=== PATIENT | male | born 1990 | race Caucasian/White ===

== ENCOUNTER 2020-03-02 15:26 | Outpatient (REF) | payer OTHER, SELFPAY | END 2020-03-02 15:27 | disposition home or self-care (01) | LOC: HO.LAB 15:26 | PROVIDERS: Visit Provider Nurse Practitioner Family | DX: Z20.828 Contact with and (suspected) exposure to other viral communicable diseases (principal); R00.0 Tachycardia, unspecified | CPT/HCPCS: 87635 ==

== ENCOUNTER 2020-12-24 13:55 | Outpatient (REF) | payer OTHER, SELFPAY | END 2020-12-24 13:56 | disposition home or self-care (01) | LOC: HO.LNP 13:55 | PROVIDERS: Visit Provider Hospitalist | DX: Z20.822 Contact with and (suspected) exposure to COVID-19 (principal); B34.9 Viral infection, unspecified | CPT/HCPCS: U0003; U0005 ==

== ENCOUNTER 2023-04-23 09:37 | Outpatient (AMB) | payer OTHER, SELFPAY ==
--- NOTE | 2023-04-23 11:02 | AM.OFFWIN_ITS ---
Intake Vital Signs 04/23/23 11:16 Weight 151.046 kg BP 160/92 H Blood Pressure Location Rt brachial Position Sitting Pulse 74 Pulse Source Pulse Oximeter Temp 98.2 F Temp Source Oral Pulse Oximetry (%) 98 Oxygen Delivery Method Room Air Intake Visit Reasons: EST/cough/congestion([phone]) Intake Note: Patient is here today for cough congestion. Allergies penicillin G Allergy (Unknown, Verified 04/23/23 11:02) throat closes Do you need a note to return to daycare/school/sports/work: Yes HPI HPI Comments History of Present Illness Details 32-year-old male presents with fatigue, malaise, productive cough x3 weeks worsening. Reports children at home had a viral illness a while ago which has since resolved. Denies chest pain, shortness of breath, fevers, chills, nausea, vomiting, abdominal pain, headache, vision changes. Not a smoker Physical exam expiratory wheezing bilaterally Concerns for possible bronchitis versus pneumonia. Unlikely ACS, PE, acute respiratory distress. Other differentials include viral illness Plan doxycycline, prednisone, albuterol. Educated patient on diagnosis and treatment plan, answered all question, patient verbalizes understanding. At this time patient will be discharged home, advised to return with new or worsening symptoms. Educated on worrisome signs and symptoms and when to return. At this time I feel comfortable discharge home. [facility] Medical History Thyroid enlarged Family History Father Hypertension Mother Diabetes Review of Systems Const Details: Constitutional : No Weight loss, No Fever, No Chills, No Fatigue, No Malaise ENT/Mouth : No sore throat, No Rhinorrhea Eyes: No Eye Pain, No Swelling, No Redness Cardiovascular : No Chest Pain, No SOB, No Dyspnea on Exertion, No Orthopnea, No Edema, No Palpitations Respiratory : No Cough, No Sputum, No Wheezing Gastrointestinal : No Nausea, No Vomiting, No Diarrhea, No Constipation, No abdominal Pain, No Hematochezia, No Melena Genitourinary : No Dysuria, No Urinary Frequency, No Hematuria, Musculoskeletal : No joint pain, No Myalgias, No Joint Swelling Skin : No Skin Lesions, No rash Neuro : No Weakness, No Numbness, No Dizziness, No Headache Psych : No Anxiety/Panic, No Depression All other systems reviewed and are negative All systems reviewed & are unremarkable except as noted in HPI and below Physical Exam Vital Signs: Last Vital Signs Temp 98.2 F 04/23/23 11:16 Pulse 74 04/23/23 11:16 BP 160/92 H 04/23/23 11:16 Pulse Ox 98 04/23/23 11:16 Oxygen Delivery Method Room Air 04/23/23 11:16 vss Appearance: Alert.? Oriented X3.? No acute distress.? Head: Normocephalic, atraumatic, no step-offs or deformities Eyes: Pupils equal, round and reactive to light.? ENT: Pharynx normal.? Neck: Normal inspection.? Neck supple.? CVS: Normal heart rate and rhythm.? Pulses normal.? Respiratory: No respiratory distress.? Breath sounds bilateral expiratory wheezing.? Abdomen: Soft and nontender.? Skin: Skin warm and dry.? Normal skin color.? Normal skin turgor.? Extremities: No lower extremity edema.? No calf ttp. 5/5 strength to bilateral upper and lower extremities Neuro: Oriented X 3.? No motor deficit.? No sensory deficit. CN 2-12 intact Assessment & Plan Assessment & Plan (1) Bronchitis: Code(s): J40 - Bronchitis, not specified as acute or chronic Plan Take your medications as prescribed. If you were prescribed antibiotics today, it is important that you take your medication to their entirety, do not skip any doses, do not finish them early. Follow-up with your primary care provider this week. Return to the emergency department with new or worsening symptoms. Such as fevers, chills, chest pain, shortness of breath, nausea, vomiting, dizziness, headache, vision changes, lethargy In case of emergency call 911 Medications: New prednisone 40 mg (2 x 20 mg) PO DAILY 10 tabs 0RF 5 days doxycycline hyclate 100 mg PO BID 14 caps 0RF 7 days albuterol sulfate 90 mcg/actuation 2 puffs inhalation Q6H PRN 6.7 grams 0RF shortness of breath or wheezing Coding Level of Care Code Est Pt Level 3 (84075) Diagnoses Bronchitis J40
[2023-04-23 11:16] VITALS: BP 160/92; PULSE 74; TEMP 36.8; O2SAT 98
== END 2023-04-23 12:08 | disposition home or self-care (01) ==
PROVIDERS: PCP Nurse Practitioner Family; Visit Provider Physician Assistant
DX: J40 Bronchitis, not specified as acute or chronic (principal)
CPT/HCPCS: 99213

== ENCOUNTER 2024-03-26 08:45 | Outpatient (AMB) | payer OTHER, SELFPAY ==
--- NOTE | 2024-03-26 08:59 | MHC.OFFWIV ---
Intake Vital Signs 03/26/24 09:00 Weight 333 lb BP 130/90 H Blood Pressure Location Lt brachial Position Sitting Pulse 75 Pulse Source Pulse Oximeter Pulse Oximetry (%) 100 Oxygen Delivery Method Room Air Intake Visit Reasons: EP bladder pain Intake Note: Patient here for frequent urination, burning dull pain that has been present for about 2-3 days. Patient Tobacco Use Status: Never used Tobacco Allergies penicillin G Allergy (Unknown, Verified 03/26/24 09:04) throat closes Do you need a note to return to daycare/school/sports/work: Yes HPI HPI Comments History of Present Illness Details The patient is a 33-year-old male presenting with symptoms suggestive of a suspected urinary tract infection. The patient reports an increased frequency of urination and a warm sensation post-urination. He describes discomfort located above the lower abdomen. Symptoms began a few days prior to the visit and have been gradually improving. The patient denies experiencing any fever or hematuria. 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 He denies a history of kidney stones. Of note, the patient has a known allergy to penicillin. [facility] Medical History Thyroid enlarged Family History Father Hypertension Mother Diabetes Social History Patient Tobacco Use Status: Never used Tobacco Review of Systems Const All systems reviewed & are unremarkable except as noted in HPI and below Physical Exam Vital Signs: Last Vital Signs Pulse 75 03/26/24 09:00 BP 130/90 H 03/26/24 09:00 Pulse Ox 100 03/26/24 09:00 Oxygen Delivery Method Room Air 03/26/24 09:00 Const General: cooperative, healthy appearing, comfortable and no acute distress Orientation/consciousness: patient oriented x3 HEENT Head: Yes normal to inspection Ears: hearing grossly normal bilaterally General nose exam: Normal external nose present Face and sinus: Yes normal facial exam Neck Neck: Yes normal visual inspection, Yes trachea midline and Yes supple Resp Effort & Inspection: normal respiratory effort and able to speak in complete sentences Skin General skin exam: no rashes or lesions noted Neuro General: patient oriented x3 Psych Appearance: grossly normal Speech and movement: Normal speech and movement present Attitude: cooperative Thought process: Normal thought process present Insight: Good insight present (Psych) Judgement: Good judgement present (Psych) Results AMB Urinalysis, Automated UA Leukoctes 0 Kanwal/uL Last Edit by Elizabeth Reyes [facility] on 03/26/24 09:18 UA Nitrite Negative Last Edit by Elizabeth Reyes [facility] on 03/26/24 09:18 UA Urobilinogen 0.2 mg/dL Last Edit by Elizabeth Reyes [facility] on 03/26/24 09:18 UA Protein 0 mg/dL Last Edit by Elizabeth Reyes [facility] on 03/26/24 09:18 UA pH 8.0 Last Edit by Elizabeth Reyes [facility] on 03/26/24 09:18 UA Blood 0 Reji/uL Last Edit by Elizabeth Reyes [facility] on 03/26/24 09:18 UA Specific [place] 1.005 Last Edit by Elizabeth Reyes [facility] on 03/26/24 09:18 UA Ketone Negative Last Edit by Elizabeth Reyes [facility] on 03/26/24 09:18 UA Bilirubin 0 mg/dL Last Edit by Elizabeth Reyes [facility] on 03/26/24 09:18 UA Glucose 0 mg/dL Last Edit by SebleAreli Reyes [facility] on 03/26/24 09:18 Assessment & Plan Assessment & Plan (1) UTI (urinary tract infection): Code(s): N39.0 - Urinary tract infection, site not specified Qualifiers: Urinary tract infection type: acute cystitis Hematuria presence: without hematuria Qualified Code(s): N30.00 - Acute cystitis without hematuria Plan: For the suspected urinary tract infection, I will initiate treatment with Macrobid Nitrofurantoin) as the antibiotics suitable for this infection, avoiding penicillin due to the patient's allergy. The patient is instructed to take one tablet every 12 hours for five days. A urine culture will be performed to confirm the bacterial presence. I advised the patient that if the culture results indicate an infection resistant to Macrobid, the antibiotic regimen will be adjusted accordingly. The patient is advised to monitor for symptoms such as persistent or worsening back pain, fever, or hematuria, which could suggest a complication like a kidney stone. In such cases, emergency evaluation would be necessary. For the low back pain, no specific treatment plan was discussed, but the patient is instructed to seek further medical attention if symptoms exacerbate. Orders: Orders AMB Urinalysis Automated Today Z13.9 - Encounter for screening, unspecified Urine Culture Today N39.0 - Urinary tract infection, site not specified Medications: New nitrofurantoin monohyd/m-cryst 100 mg (Macrobid) must administer with a meal/food 100 mg PO Q12H 5 days 10 caps 0RF Coding Level of Care Code Est Pt Level 3 (52682) Diagnoses Acute cystitis without hematuria N30.00 Urinary tract infection type: acute cystitis Hematuria presence: without hematuria
[2024-03-26 09:00] VITALS: BP 130/90; PULSE 75; O2SAT 100
== END 2024-03-26 09:24 | disposition home or self-care (01) ==
PROVIDERS: PCP Nurse Practitioner Family; Visit Provider Physician Assistant
DX: Z13.9 Encounter for screening, unspecified (principal); N30.00 Acute cystitis without hematuria

== ENCOUNTER 2024-03-26 08:45 | Outpatient (REF) | payer OTHER, SELFPAY | END 2024-03-26 08:46 | disposition home or self-care (01) | LOC: HO.LAB 08:45 | PROVIDERS: PCP Nurse Practitioner Family; Visit Provider Physician Assistant | DX: R39.0 Extravasation of urine (principal) | CPT/HCPCS: 81003; 87086 ==

== ENCOUNTER 2024-05-05 08:05 | Outpatient (AMB) | payer OTHER, SELFPAY ==
[2024-05-05 08:08] VITALS: BP 150/90; PULSE 93; TEMP 37.1; O2SAT 98
--- NOTE | 2024-05-05 08:08 | AM.OFFWIN_ITS ---
Intake Vital Signs 05/05/24 08:08 Weight 342 lb BP 150/90 H Blood Pressure Location Lt brachial Position Sitting Pulse 93 Pulse Source Pulse Oximeter Temp 98.7 F Temp Source Oral Pulse Oximetry (%) 98 Oxygen Delivery Method Room Air Intake Visit Reasons: EP-respiratory issues Intake Note: Patient here cough,mucus, low energy, chest congestion that has been going on for about 1 week. Patient Tobacco Use Status: Never used Tobacco Allergies penicillin G Allergy (Unknown, Verified 05/05/24 08:19) throat closes Do you need a note to return to daycare/school/sports/work: Yes HPI HPI Comments History of Present Illness Details History - The patient is a 33-year-old male pres enting with respiratory symptoms and right ear pain. - Complaints include persistent cough wi th brown sputum and a raspy throat lasting about two weeks, along with an episode of fever recorded at 100.3?F yesterday. - The patient has no prior history of yonathan ng conditions and denies the use of tobacco or nicotine products. - Self-medication has included DayQuil a nd NyQuil, as well as Tylenol and Ibuprofen for fever. - There are no other reported illnesses among household contacts. - The patient's allergies include penici llin and sulfa drugs, which informed the choice of antibiotic treatment. - Recent negative test results for flu, COVID, and RSV were reported by the patient., 2 days ago at a different urgent care clinic so no need to repeat today Physical Exam General: Cooperative, healthy appearing, comfortable and no acute distress Orientation/consciousness: Patient oriented x3 Limitations: No limitations Head: Normal to inspection Ears: Hearing grossly normal bilaterally, external ears normal. bilateral TM small purulent effusions Nose: Normal external nose present, Normal nares present and No nasal discharge present Face and sinus: Normal facial exam and Yes sinuses nontender Mouth: Normal oral and palatal mucosa present and moist mucous membranes Throat: Yes tonsils normal, Yes uvula midline. Posterior oropharynx erythema Eyes: Appearance normal, both eyes and all related structures Neck: Normal visual inspection Respiratory: Clear to auscultation bilaterally. Normal respiratory effort, able to speak in complete sentences, Actively coughing, no respiratory distress, not tachypneic, no tripod positioning and no use of accessory muscles Cardiovascular: Regular rate and rhythm. Normal S1 and S2. Skin: No rashes or lesions noted Neuro: Patient oriented x3 Extremities: Normal to inspection and Yes no clubbing, cyanosis or edema PFSH Medical History Thyroid enlarged Family History Father Hypertension Mother Diabetes Social History Patient Tobacco Use Status: Never used Tobacco Review of Systems Const All systems reviewed & are unremarkable except as noted in HPI and below Physical Exam Vital Signs: Last Vital Signs Temp 98.7 F 05/05/24 08:08 Pulse 93 05/05/24 08:08 BP 160/100 H 05/05/24 08:08 Pulse Ox 98 05/05/24 08:08 Oxygen Delivery Method Room Air 05/05/24 08:08 Assessment & Plan Assessment & Plan (1) URI, acute: Code(s): J06.9 - Acute upper respiratory infection, unspecified Plan: Plan Management of the patient's respiratory symptoms and bilateral ear infections prioritizes the prescription of a Z-Braulio, considering the patient's allergies to penicillin and sulfa drugs. This choice targets the bacterial infection underlying both the respiratory symptoms and the otitis media diagnosed during the visit. The patient has been instructed to continue with DayQuil and NyQuil for symptomatic relief, with an added suggestion of Flonase to reduce nasal and sinus congestion. Testing for flu, COVID, and RSV recently yielded negative results, thus confirming the bacterial focus of treatment. Recommendations include monitoring symptom resolution and ear pain to assess treatment effectiveness. Patient was informed and verbally consented to the use of an ambient scribe for clinic note documentation during this visit (2) Otitis media: Code(s): H66.90 - Otitis media, unspecified, unspecified ear Qualifiers: Otitis media type: suppurative Chronicity: acute Laterality: right Recurrence: non-recurrent Spontaneous tympanic membrane rupture: without spontaneous rupture Qualified Code(s): H66.001 - Acute suppurative otitis media without spontaneous rupture of ear drum, right ear Plan: as above Medications: New azithromycin For 250 mg dose pack: take 500 mg today (day 1), then 250 mg for 4 days (days 2-5) PO 6 tabs 0RF Coding Level of Care Code New Pt Level 4 (06051) Diagnoses URI, acute J06.9 Non-recurrent acute suppurative otitis media of right ear without spontaneous rupture of tympanic membrane H66.001 Otitis media type: suppurative Chronicity: acute Laterality: right Recurrence: non-recurrent Spontaneous tympanic membrane rupture: without spontaneous rupture
== END 2024-05-05 08:46 | disposition home or self-care (01) ==
PROVIDERS: Visit Provider Physician Assistant
DX: J06.9 Acute upper respiratory infection, unspecified (principal); H66.001 Acute suppurative otitis media without spontaneous rupture of ear drum, right ear

== ENCOUNTER → 2024-05-05 08:05 | Outpatient (BNVA) | payer OTHER, SELFPAY | PROVIDERS: Visit Provider Physician Assistant ==